=== PATIENT | male | born 1980 | race African-American/Black ===

== ENCOUNTER 2017-06-20 12:35 | Emergency (ER) | payer SELFPAY ==
[~2017-06-20] VITALS: Ht 193 cm; Wt 104.3 kg
[~2017-06-20 12:35] MED LIST: ALBUTEROL0.09 MG/A2 IH; DOXYCYCLINE MO100 MG PO; NKHM; PERCOCET 325 MG1 TA3 PO; ROXICODONE5 MG PO
== END 2017-06-20 14:45 | disposition home or self-care (01) ==
LOC: ED 12:35
DX: S61.216A Laceration without foreign body of right little finger without damage to nail, initial encounter (principal); S61.211A Laceration without foreign body of left index finger without damage to nail, initial encounter; S61.011A Laceration without foreign body of right thumb without damage to nail, initial encounter; S61.412A Laceration without foreign body of left hand, initial encounter; S61.411A Laceration without foreign body of right hand, initial encounter; F17.200 Nicotine dependence, unspecified, uncomplicated; W18.39XA Other fall on same level, initial encounter; Y93.89 Activity, other specified; Y92.89 Other specified places as the place of occurrence of the external cause; Y99.8 Other external cause status

== ENCOUNTER 2017-07-02 03:25 | Emergency (ER) | payer SELFPAY ==
[~2017-07-02] VITALS: Ht 193 cm; Wt 149.7 kg
== END 2017-07-02 03:56 | disposition home or self-care (01) ==
LOC: ED 03:25
DX: S61.210D Laceration without foreign body of right index finger without damage to nail, subsequent encounter (principal); F17.200 Nicotine dependence, unspecified, uncomplicated; Z48.02 Encounter for removal of sutures; W25.XXXD Contact with sharp glass, subsequent encounter

== ENCOUNTER 2020-04-10 21:01 | Emergency (ER) | payer SELFPAY ==
[~2020-04-10] VITALS: Ht 193 cm; Wt 172.4 kg
[2020-04-10] MEDS ORDERED: CILOXAN 5 ML5 ML OPH (22:25)
== END 2020-04-10 22:43 | disposition home or self-care (01) ==
LOC: ED 21:01
DX: H10.9 Unspecified conjunctivitis (principal); H16.9 Unspecified keratitis

== ENCOUNTER 2020-06-09 03:15 | Emergency (ER) | payer SELFPAY ==
[~2020-06-09] VITALS: Ht 193 cm; Wt 172.4 kg
[~2020-06-09 03:15] MED LIST changes: +CILOXAN 5 ML5 ML OPH
[2020-06-09] MEDS ORDERED: PENICILLIN VK500 MG PO (03:41)
== END 2020-06-09 04:35 | disposition home or self-care (01) ==
LOC: ED 03:15
DX: K02.9 Dental caries, unspecified (principal)